=== PATIENT | female | born 2000 | race Caucasian/White ===

== ENCOUNTER 2021-10-03 12:16 | Emergency (ER) | payer OTHER ==
[2021-10-03 12:47] VITALS: BP 101/69; PULSE 92; TEMP 99.1; BMI 29.1
[2021-10-03] MEDS ORDERED: DEXAMETHASONE LIQUID 0.5 MG/5 ML PO ONE (13:30)
[2021-10-03] MEDS ORDERED: MAG HYDROX/ALH/SMC/DPHA/LIDO 240 ML MOUTHWASH MM ONE (13:31)
[2021-10-03] MEDS ORDERED: DEXAMETHASONE 4 MG TABLET (FP) PO ONE (13:37)
[2021-10-03] MEDS ORDERED: DEXAMETHASONE SOD PHOSPHATE 10 MG/1 ML VIAL PO ONE (13:55)
[2021-10-03] MEDS ORDERED: DEXAMETHASONE SOD PHOSPHATE 10 MG/1 ML VIAL ONE (14:01)
== END 2021-10-03 15:25 | disposition home or self-care (01) ==
LOC: FER 12:16
DX: J02.9 Acute pharyngitis, unspecified (principal)
CPT/HCPCS: 81025; 87651; 99283-25; C9803-CS; J1100; U0003; U0005